=== PATIENT | female | born 1970 | race Caucasian/White ===

== ENCOUNTER 2022-07-27 12:11 | Emergency (ER) | payer MEDICARE, SELFPAY ==
[2022-07-27 12:47] VITALS: BP 149/89; PULSE 77; RESP 18; TEMP 36.6; O2SAT 97; BMI 31.4
--- NOTE | 2022-07-27 13:11 | EXP.UTC ---
Discharge Plan Disposition Patient Disposition: Home, Self-Care Condition: Good Prescriptions Prescriptions: New cephalexin 500 mg capsule 500 mg PO QID Qty: 40 0RF mupirocin calcium 2 % cream 1 applic topical TID 10 Days Qty: 30 0RF No Action warfarin 4 mg tablet 4 mg PO DAILY Label Comments: TAKE 1 TABLET BY MOUTH ONCE DAILY DIRECTED AFTER VISIT SUMMARY verapamil 240 mg tablet extended release 240 mg PO HS Label Comments: TAKE 1 TABLET BY MOUTH ONCE DAILY AT NIGHT. DO NOT CRUSH OR CHEW. NEED APPOINTMENT FOR FURTHER REFILLS. buspirone 15 mg tablet 15 mg PO TID Label Comments: TAKE 1 TABLET BY MOUTH THREE TIMES DAILY escitalopram oxalate 10 mg tablet 10 mg PO DAILY bupropion HCl 300 mg tablet extended release 24 hr 30 mg PO ONCE Referrals Follow up/Referrals: Niya Kaene [Primary Care Provider] - See instructions Activity Restrictions/Add. Instructions Additional Instructions/Restrictions: *Start antibiotic(s) immediately and be sure to take as ordered for the FULL length of time although you may be feeling better or start to see improvement in the next 24-48 hours *Monitor closely. Outlined redness so that you can monitor easier. Follow up immediately for new or worsening symptoms including but not limited to redness, swelling, streaking from site fever or chills. *Warm compress 15 minutes 3-4 times day *Never squeeze or pop these on your own. Seek immediate medical attention next time this occurs *Monitor Temp. Tylenol every 4 hours as needed and ibuprofen every 6 hours as needed (as long as your primary care doctor has told you that it is ok to take both. For fever, aches, pain. ER if no less that 101 despite Tylenol and ibuprofen ?Follow up with your family doctor/primary care physician in the next 48-72 hours if no improvement Make sure to let your Doctor known that you are on antibiotics they will need to monitor your Warfarin and may need to adjust the dose Clinical Impressions Clinical Impression: Abscess Instructions Patient Instructions: Cephalexin, DI for Skin Abscess Discharge ED Provider: Beryl Caal [facility] [place] HPI General Stated complaint: back pain, no known accident Mode of Arrival: Ambulatory Source of Information: Patient Limitations: No Limitations Time Seen by Provider: 07/27/22 13:12 Description of Symptoms (Recalled from Triage Doc. by RN): pt comes in with c/o severe pain in center of back. pt states last night she noticied a bug bit or abcess on middle of back. HEENT Symptoms (Recalled from RN notes): No Resp Symptoms (Recalled from RN notes): No Skin Symptoms (Recalled from RN notes): Yes MS Symptoms (Recalled from RN notes): Yes Functional Status (Recalled from RN notes): n/a History of Present Illness Provider Complaint: Patient states that she noticed a bump like area in the center of her back that is tender to the touch and sore States that it hurts when she tries to sit back or put any pressure on it States that this morning it was more swollen and she was worried about infection so she came in to get it checked out Related Data Home Medications Medication Instructions Recorded Confirmed bupropion HCl 300 mg 24 hr tablet, 30 mg PO ONCE Anxiety 07/27/22 07/27/22 extended release buspirone 15 mg tablet 15 mg PO TID Anxiety 07/27/22 07/27/22 escitalopram oxalate 10 mg tablet 10 mg PO DAILY Anxiety 07/27/22 07/27/22 verapamil 240 mg tablet,extended 240 mg PO HS . 07/27/22 07/27/22 release warfarin 4 mg tablet 4 mg PO DAILY . 07/27/22 07/27/22 Previous Rx's Medication Instructions Recorded cephalexin 500 mg capsule 500 mg PO QID #40 caps 07/27/22 mupirocin calcium 2 % topical cream 1 applic topical TID 10 days #30 07/27/22 grams Allergies Allergy/AdvReac Type Severity Reaction Status Date / Time No Known Allergies Allergy Verified 07/27/22 12:52 Worker's Comp Is this a Worker's Comp case?
[2022-07-27 13:32] VITALS: BP 149/89; PULSE 77; RESP 18; TEMP 36.6
== END 2022-07-27 13:43 | disposition home or self-care (01) ==
PROVIDERS: Emergency Provider Nurse Practitioner; PCP Family Medicine
DX: L02.212 Cutaneous abscess of back [any part, except buttock and flank] (principal)
CPT/HCPCS: 87070; 87205; 99212; G0463